=== PATIENT | female | born 2000 | race Caucasian/White ===

== ENCOUNTER 2023-06-25 08:10 | Outpatient (CLI) | payer MEDICAID, SELFPAY | END 2023-06-25 08:11 | disposition home or self-care (01) | PROVIDERS: PCP Family Medicine; Referring Provider Family Medicine; Visit Provider Family Medicine | DX: Z00.00 Encounter for general adult medical examination without abnormal findings (principal); R53.83 Other fatigue; E55.9 Vitamin D deficiency, unspecified; E03.9 Hypothyroidism, unspecified; Z13.9 Encounter for screening, unspecified; E66.9 Obesity, unspecified | CPT/HCPCS: 80048; 80061; 84443; 85025; 86480 ==

== ENCOUNTER 2023-10-09 08:48 | Outpatient (CLI) | payer MEDICAID, SELFPAY | END 2023-10-09 08:49 | disposition home or self-care (01) | PROVIDERS: PCP Family Medicine; Visit Provider Family Medicine | DX: E03.9 Hypothyroidism, unspecified (principal); R53.83 Other fatigue; R63.4 Abnormal weight loss | CPT/HCPCS: 80048; 80076; 84443; 85025 ==

== ENCOUNTER 2024-07-02 11:38 | Outpatient (CLI) | payer MEDICAID, SELFPAY | END 2024-07-02 11:39 | disposition home or self-care (01) | PROVIDERS: PCP Family Medicine; Visit Provider Family Medicine | DX: E03.9 Hypothyroidism, unspecified (principal); N92.0 Excessive and frequent menstruation with regular cycle; E55.9 Vitamin D deficiency, unspecified; Z13.220 Encounter for screening for lipoid disorders | CPT/HCPCS: 80048; 80061; 84443; 85025 ==

== ENCOUNTER 2025-07-04 16:11 | Outpatient (CLI) | payer MEDICAID, SELFPAY | END 2025-07-04 16:12 | disposition home or self-care (01) | PROVIDERS: PCP Family Medicine; Visit Provider Family Medicine | DX: E03.9 Hypothyroidism, unspecified (principal); E55.9 Vitamin D deficiency, unspecified; N92.0 Excessive and frequent menstruation with regular cycle | CPT/HCPCS: 80048; 82306; 84443; 85025 ==